=== PATIENT | female | born 1975 | race Caucasian/White ===

== ENCOUNTER 2019-12-01 08:54 | Emergency (ER) | payer BC ==
[~2019-12-01] VITALS: Ht 162.6 cm; Wt 104.3 kg
[2019-12-01] MEDS ORDERED: ZOFRAN ODT4 MG PO (10:27)
[2019-12-01] MEDS ORDERED: CLEOCIN HCL300 MG PO (10:27)
[2019-12-01] MEDS ORDERED: NAPROSYN500 MG PO (10:28)
[2019-12-01 11:30] LABS: ABSOLUTE NEUTROPHILS 2.9 thou/uL (1.4-8.2); BASOPHILS 1.4 % (0.0-2.0); EOSINOPHILS 4.7 % (0.0-3.0); HEMOGLOBIN 8.3 gm/dL (12.0-15.0); LYMPHOCYTES 25.3 % (24.0-44.0); MCH 21.1 pg (26.0-34.0); MCHC 30.7 g/dL (28.0-37.0); MCV 68.8 fL (80.0-100.0); MONOCYTES 7.2 % (1.0-8.0); PLATELET COUNT 328 thou/uL (150-400); POLYS 61.4 % (36.0-66.0); RBC 3.93 mil/uL (4.20-5.00); RDW 19.8 % (10.5-14.5); WBC 4.7 thou/uL (4.0-11.0)
[2019-12-01 11:39] LABS: CALCIUM 8.5 mg/dL (8.5-10.1); CREATININE 0.8 mg/dL (0.6-1.0); POTASSIUM 4.3 mmol/L (3.5-5.1)
[2019-12-01 12:07] LABS: ANISOCYTOSIS 2+; PLATELET ESTIMATE NORMAL
[2019-12-01 12:08] LABS: HYPOCHROMASIA 2+; MICROCYTES 2+
[2019-12-01 12:09] LABS: POIKILOCYTOSIS SLIGHT
[2019-12-01 12:14] VITALS: BP 137/47
== END 2019-12-01 12:16 | disposition home or self-care (01) ==
LOC: ER 08:54
PROVIDERS: Emergency Medicine
DX: K04.7 Periapical abscess without sinus (principal); R10.9 Unspecified abdominal pain; R20.0 Anesthesia of skin